=== PATIENT | male | born 1950 | race Caucasian/White ===

== ENCOUNTER 2016-06-08 11:55 | Outpatient (CLI) ==
[2016-06-08 16:55] LABS: ALT (SGPT) 29 U/L (0-55); AST (SGOT) 19 U/L (5-34); Alkaline Phosphatase 71 U/L (40-150); Anion Gap 11 mmol/L (10-20); BUN (Urea Nitrogen) 15 mg/dL (8.4-25.7); Bilirubin, Total 1.9 mg/dL (0.2-1.2); Calc. Creatinine Clearance 0 mL/min (70-130); Carbon Dioxide 27 mmol/L (23-31); Chloride 108 mmol/L (98-107); Estimated GFR-MDRD 75; Globulin 2.7 g/dL (2.4-3.5); Protein, Total 7.1 g/dL (5.8-8.1)
[2016-06-08 17:21] LABS: #Basophils 0.1 thou/uL (0.0-0.2); #Eosinphils 0.1 thou/uL (0.0-0.7); #Monocytes 0.6 thou/uL (0.11-0.59); #Neutrophils 3.4 thou/uL (1.40-6.50); %Basophils 1.4 % (0.0-1.0); %Eosinophils 2.3 % (0.0-10.0); %Monocytes 12.2 % (0.0-10.0); Hematocrit 59.7 % (42.0-52.0); Mean Platelet Volume 6.5 fL (7.4-10.4); Neutrophil 60 % (42-75); Red Blood Cell (RBC) Count 6.18 mill/uL (4.70-6.10); White Blood Cell (WBC) Count 5.3 thou/uL (4.8-10.8)
== END 2016-06-08 11:56 | disposition home or self-care (01) ==
LOC: LABLEX 11:55
PROVIDERS: ATTEND Family Medicine
DX: J30.9 Allergic rhinitis, unspecified (principal); N40.1 Benign prostatic hyperplasia with lower urinary tract symptoms; Z86.73 Personal history of transient ischemic attack (TIA), and cerebral infarction without residual deficits
CPT/HCPCS: 80053; 84153; 85025

== ENCOUNTER 2016-08-27 12:54 | Outpatient (CLI) | payer MEDICARE ==
--- NOTE | 2016-08-27 14:33 | RAD ---
THREE VIEWS OF THE RIGHT SMALL FINGER HISTORY: Injury to the patient with right small finger pain. COMPARISON: None. FINDINGS: Three views of the right small finger show no evidence of acute fracture or dislocation. Osseous er osions are seen surrounding the DIP joint of the finger. There is joint space narrowing of the DIP joint. 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 POS: [facility]
== END 2016-08-27 12:55 | disposition home or self-care (01) ==
LOC: BURRAD 12:54
PROVIDERS: ATTEND Family Medicine
DX: S69.91XA Unspecified injury of right wrist, hand and finger(s), initial encounter (principal); M79.644 Pain in right finger(s); M13.841 Other specified arthritis, right hand

== ENCOUNTER 2017-03-17 10:21 | Outpatient (CLI) | payer MEDICARE ==
--- NOTE | 2017-03-17 17:41 | RAD ---
LEFT KNEE FOUR VIEWS 03/17/17 No fracture, dislocation, or acute bony change was seen. Some minimal osteophytes are present in the knee joint and patellofemoral joint. There may be a small joint effusion, but it is certainly not lar ge. The articular surfaces are smooth. IMPRESSION: No acute bony finding. POS: [facility]
== END 2017-03-17 10:22 | disposition home or self-care (01) ==
LOC: BURULT 10:21
PROVIDERS: ATTEND Nurse Practitioner
DX: R60.0 Localized edema (principal); M25.562 Pain in left knee